=== PATIENT | female | born 1970 | race Caucasian/White ===

== ENCOUNTER → 2020-01-24 | Outpatient (CLI) | payer BC | LOC: WOUNDCARE 09:11 | PROVIDERS: ATTEND Surgery | DX: L98.492 Non-pressure chronic ulcer of skin of other sites with fat layer exposed (principal); E66.01 Morbid (severe) obesity due to excess calories; E11.622 Type 2 diabetes mellitus with other skin ulcer; Z68.42 Body mass index [BMI] 45.0-49.9, adult; I96 Gangrene, not elsewhere classified; B35.4 Tinea corporis; T65.222A Toxic effect of tobacco cigarettes, intentional self-harm, initial encounter; F17.218 Nicotine dependence, cigarettes, with other nicotine-induced disorders | CPT/HCPCS: 99203 ==

== ENCOUNTER → 2020-02-01 | Outpatient (CLI) | payer BC | LOC: WOUNDCARE 10:17 | PROVIDERS: ATTEND Surgery | DX: L98.492 Non-pressure chronic ulcer of skin of other sites with fat layer exposed (principal); B35.4 Tinea corporis; E66.01 Morbid (severe) obesity due to excess calories; E11.622 Type 2 diabetes mellitus with other skin ulcer; I96 Gangrene, not elsewhere classified; T65.222A Toxic effect of tobacco cigarettes, intentional self-harm, initial encounter; F17.219 Nicotine dependence, cigarettes, with unspecified nicotine-induced disorders; Z68.42 Body mass index [BMI] 45.0-49.9, adult | CPT/HCPCS: 99212 ==

== ENCOUNTER → 2020-02-08 | Outpatient (CLI) | payer BC | LOC: WOUNDCARE 09:22 | PROVIDERS: ATTEND Surgery | DX: L98.492 Non-pressure chronic ulcer of skin of other sites with fat layer exposed (principal); E11.622 Type 2 diabetes mellitus with other skin ulcer; I96 Gangrene, not elsewhere classified; T65.222A Toxic effect of tobacco cigarettes, intentional self-harm, initial encounter; E66.01 Morbid (severe) obesity due to excess calories; B35.4 Tinea corporis; F17.219 Nicotine dependence, cigarettes, with unspecified nicotine-induced disorders; Z68.42 Body mass index [BMI] 45.0-49.9, adult | CPT/HCPCS: 11042; A6197; G0463 ==

== ENCOUNTER → 2020-02-15 | Outpatient (CLI) | payer BC | LOC: WOUNDCARE 09:46 | PROVIDERS: ATTEND Surgery | DX: L98.492 Non-pressure chronic ulcer of skin of other sites with fat layer exposed (principal); B35.4 Tinea corporis; E66.01 Morbid (severe) obesity due to excess calories; E11.622 Type 2 diabetes mellitus with other skin ulcer; T65.222A Toxic effect of tobacco cigarettes, intentional self-harm, initial encounter; L92.8 Other granulomatous disorders of the skin and subcutaneous tissue; E11.52 Type 2 diabetes mellitus with diabetic peripheral angiopathy with gangrene; F17.218 Nicotine dependence, cigarettes, with other nicotine-induced disorders | CPT/HCPCS: 11042; G0463 ==

== ENCOUNTER → 2020-02-29 | Outpatient (CLI) | payer BC | LOC: WOUNDCARE 09:53 | PROVIDERS: ATTEND Surgery | DX: E11.622 Type 2 diabetes mellitus with other skin ulcer (principal); E11.52 Type 2 diabetes mellitus with diabetic peripheral angiopathy with gangrene; I96 Gangrene, not elsewhere classified; L98.492 Non-pressure chronic ulcer of skin of other sites with fat layer exposed; B35.4 Tinea corporis; E66.01 Morbid (severe) obesity due to excess calories; T65.222A Toxic effect of tobacco cigarettes, intentional self-harm, initial encounter; F17.218 Nicotine dependence, cigarettes, with other nicotine-induced disorders; L92.8 Other granulomatous disorders of the skin and subcutaneous tissue | CPT/HCPCS: 99213 ==

== ENCOUNTER → 2020-03-07 | Outpatient (CLI) | payer BC | LOC: WOUNDCARE 09:58 | PROVIDERS: ATTEND Surgery | DX: L98.492 Non-pressure chronic ulcer of skin of other sites with fat layer exposed (principal); B35.4 Tinea corporis; E66.01 Morbid (severe) obesity due to excess calories; E11.622 Type 2 diabetes mellitus with other skin ulcer; I96 Gangrene, not elsewhere classified; Z68.42 Body mass index [BMI] 45.0-49.9, adult | CPT/HCPCS: 11042; G0463 ==

== ENCOUNTER → 2020-03-13 | Outpatient (CLI) | payer BC | LOC: WOUNDCARE 09:56 | PROVIDERS: ATTEND Surgery | DX: L98.492 Non-pressure chronic ulcer of skin of other sites with fat layer exposed (principal); B35.4 Tinea corporis; E66.01 Morbid (severe) obesity due to excess calories; E11.622 Type 2 diabetes mellitus with other skin ulcer; T65.222A Toxic effect of tobacco cigarettes, intentional self-harm, initial encounter; F17.219 Nicotine dependence, cigarettes, with unspecified nicotine-induced disorders; L92.8 Other granulomatous disorders of the skin and subcutaneous tissue; I96 Gangrene, not elsewhere classified; Z68.42 Body mass index [BMI] 45.0-49.9, adult | CPT/HCPCS: 11042; 87070; 87077; 87205; G0463 ==

== ENCOUNTER → 2020-03-19 | Outpatient (CLI) | payer BC | LOC: WOUNDCARE 09:53 | PROVIDERS: ATTEND Surgery | DX: L98.492 Non-pressure chronic ulcer of skin of other sites with fat layer exposed (principal); B35.4 Tinea corporis; E66.01 Morbid (severe) obesity due to excess calories; E11.622 Type 2 diabetes mellitus with other skin ulcer; T65.222A Toxic effect of tobacco cigarettes, intentional self-harm, initial encounter; L92.8 Other granulomatous disorders of the skin and subcutaneous tissue; E11.52 Type 2 diabetes mellitus with diabetic peripheral angiopathy with gangrene; F17.218 Nicotine dependence, cigarettes, with other nicotine-induced disorders | CPT/HCPCS: 11042; G0463 ==

== ENCOUNTER → 2020-03-28 | Outpatient (CLI) | payer BC | LOC: WOUNDCARE 09:59 | PROVIDERS: ATTEND Surgery | DX: L98.492 Non-pressure chronic ulcer of skin of other sites with fat layer exposed (principal); B35.4 Tinea corporis; E66.01 Morbid (severe) obesity due to excess calories; E11.622 Type 2 diabetes mellitus with other skin ulcer; T65.222A Toxic effect of tobacco cigarettes, intentional self-harm, initial encounter; L92.8 Other granulomatous disorders of the skin and subcutaneous tissue; E11.52 Type 2 diabetes mellitus with diabetic peripheral angiopathy with gangrene; F17.218 Nicotine dependence, cigarettes, with other nicotine-induced disorders | CPT/HCPCS: 11042; G0463 ==

== ENCOUNTER → 2020-04-11 | Outpatient (CLI) | payer BC | LOC: WOUNDCARE 09:53 | PROVIDERS: ATTEND Orthopaedic Surgery Hand Surgery | DX: L98.492 Non-pressure chronic ulcer of skin of other sites with fat layer exposed (principal); B35.4 Tinea corporis; E66.01 Morbid (severe) obesity due to excess calories; E11.622 Type 2 diabetes mellitus with other skin ulcer; T65.222A Toxic effect of tobacco cigarettes, intentional self-harm, initial encounter; L92.8 Other granulomatous disorders of the skin and subcutaneous tissue; E11.52 Type 2 diabetes mellitus with diabetic peripheral angiopathy with gangrene; F17.218 Nicotine dependence, cigarettes, with other nicotine-induced disorders | CPT/HCPCS: 97597; G0463 ==